=== PATIENT | male | born 1975 | race Caucasian/White ===

== ENCOUNTER 2018-07-05 09:41 | Emergency (ER) | payer OTHER ==
[2018-07-05 10:04] VITALS: BP 131/78; PULSE 80; TEMP 98.2; BMI 25.2
[2018-07-05] MEDS ORDERED: RANITIDINE HCL 150 MG TABLET (FP) PO ONE (10:32)
[2018-07-05] MEDS ORDERED: predniSONE 20 MG TABLET (UD) PO ONE (10:32)
--- NOTE | 2018-07-05 10:36 | PDOC ---
History of Present Illness - General History Source: Patient Exam Limitations: No Limitations <Ruben Morse - Last Filed: 07/05/18 10:38> - History of Present Illness Initial Comments: 07/05/18 10:41 The patient is a 43 year old male with no significant past medical history and known allergy to hair dye who presents to the ED s/p allergic reaction after dying his hair 2 days ago. He states he tried using a different hair dye this time with a different ingredient, however he developed a rash throughout his scalp, hairline, and bernardo during his use that has persisted for the past few days. He reports some relief with benadryl and denies any associated tongue/ throat swelling or difficulty breathing. He denies any fevers, chills, or cough. <Amber Dumont - Last Filed: 07/05/18 10:44> - General Chief Complaint: Allergic Reaction Stated Complaint: ALLERGIC REACTION Time Seen by Provider: 07/05/18 10:24 Past History - Past Medical History CVA: No COPD: No Disorders: No Kidney Stones: No - Immunization History Immunization Up to Date: No - Suicide/Smoking/Psychosocial Hx Smoking Status: No Smoking History: Current some day smoker Have you smoked in the past 12 months: No Number of Cigarettes Smoked Daily: 0 Information on smoking cessation initiated: No Hx Alcohol Use: No Drug/Substance Use Hx: No Substance Use Type: Marijuana <Ruben Morse - Last Filed: 07/05/18 10:38> <Amber Dumont - Last Filed: 07/05/18 10:44> - Past Medical History Allergies/Adverse Reactions: Allergies Allergy/AdvReac Type Severity Reaction Status Date / Time pineapple [Pineapple] Allergy Itching Verified 11/03/15 08:54 HAIR DYE Allergy Intermediate Uncoded 07/05/18 10:04 APPLES Allergy Itching Uncoded 11/03/15 08:54 ORANGES Allergy Itching Uncoded 11/03/15 08:54 Home Medications: Ambulatory Orders Cephalexin [Keflex] 500 mg PO BID #14 capsule 11/03/15 predniSONE [Deltasone -] 40 mg PO DAILY #8 tablet 11/03/15 Diphenhydramine HCl [Benadryl -] 25 mg PO Q6H PRN #28 capsule 07/05/18 Prednisone [Deltasone] 60 mg PO DAILY #12 tablet 07/05/18 Ranitidine HCl [Zantac] 150 mg PO BID PRN #14 tablet 07/05/18 Review of Systems - Review of Systems Able to Perform ROS?: Yes Comments:: 07/05/18 10:41 GENERAL/CONSTITUTIONAL: No fever or chills. No weakness. HEAD, EYES, EARS, NOSE AND THROAT: No change in vision. No ear pain or discharge. No sore throat. CARDIOVASCULAR: No chest pain or shortness of breath. RESPIRATORY: No cough, wheezing, or hemoptysis. GASTROINTESTINAL: No nausea, vomiting, diarrhea or constipation. GENITOURINARY: No dysuria, frequency, or change in urination. MUSCULOSKELETAL: No joint or muscle swelling or pain. No neck or back pain. SKIN: (+) Hives/rash along scalp and hair line. NEUROLOGIC: No headache, vertigo, loss of consciousness, or change in strength/ sensation. ENDOCRINE: No increased thirst. No abnormal weight change. HEMATOLOGIC/LYMPHATIC: No anemia, easy bleeding, or history of blood clots. ALLERGIC/IMMUNOLOGIC: No hives or skin allergy. All Other Systems: Reviewed and Negative <Amber Dumont - Last Filed: 07/05/18 10:44> *Physical Exam - Vital Signs Last Vital Signs Temp Pulse Resp BP Pulse Ox 98.2 F 80 18 131/78 100 07/05/18 10:02 07/05/18 10:02 07/05/18 10:02 07/05/18 10:02 07/05/18 10:02 <Ruben Morse - Last Filed: 07/05/18 10:38> - Vital Signs Last Vital Signs Temp Pulse Resp BP Pulse Ox 98.2 F 80 18 131/78 100 07/05/18 10:02 07/05/18 10:02 07/05/18 10:02 07/05/18 10:02 07/05/18 10:02 - Physical Exam Comments: 07/05/18 10:42 GENERAL: Awake, alert, and fully oriented, in no acute distress HEAD: No signs of trauma ENT: Auricles normal inspection, hearing grossly normal, nares patent, oropharynx clear, no redness or swelling. NECK: Normal ROM, supple, no lymphadenopathy, JVD, or masses LUNGS: Breath sounds equal, clear to auscultation bilaterally. No wheezes, and no crackles HEART: Regular rate and rhythm EXTREMITIES: Normal range of motion, no edema. No clubbing or cyanosis. No cords, erythema, or tenderness NEUROLOGICAL: Cranial nerves II through XII grossly intact. Normal speech, normal gait SKIN: Warm, Dry, urticaria along the scalp and bernardo. <Amber Dumont - Last Filed: 07/05/18 10:44> Moderate Sedation - Procedure Monitoring Vital Signs: Procedure Monitoring Vital Signs Temperature 98.2 F 07/05/18 10:02 Pulse Rate 80 07/05/18 10:02 Respiratory Rate 18 07/05/18 10:02 Blood Pressure 131/78 07/05/18 10:02 O2 Sat by Pulse Oximetry (%) 100 07/05/18 10:02 <Ruben Morse - Last Filed: 07/05/18 10:38> - Procedure Monitoring Vital Signs: Procedure Monitoring Vital Signs Temperature 98.2 F 07/05/18 10:02 Pulse Rate 80 07/05/18 10:02 Respiratory Rate 18 07/05/18 10:02 Blood Pressure 131/78 07/05/18 10:02 O2 Sat by Pulse Oximetry (%) 100 07/05/18 10:02 <NidiadeenaAmber - Last Filed: 07/05/18 10:44> Medical Decision Making - Medical Decision Making 07/05/18 10:38 A portion of this note was documented by scribe services under my direction. I have reviewed the details of the note, within reason, and agree with the documentation with the following case summary and management plan written by me. Patient treated in the ED. Nursing notes are reviewed and incorporated into the medical decision-making. Vital signs reviewed. Peripheral IV access obtained by the nurse, laboratory studies are drawn and sent, reviewed and interpreted by myself. Vital Signs Temp Pulse Resp BP Pulse Ox 98.2 F 80 18 131/78 100 07/05/18 10:02 07/05/18 10:02 07/05/18 10:02 07/05/18 10:02 07/05/18 10:02 43-year-old male with no past medical history presents with ALLERGIC reaction to hair dye. Yesterday, the patient was using hair dye was oozing around scalp and beer and noticed that there was a rash. He had attempted take Benadryl but did not improve. Stated the symptoms persist dental today. However, has no difficulty breathing, sore throat, chest pain, shortness of breath, palpitations , nausea, vomiting, diarrhea. Patient's is a nurse suggested the patient is a prescription for prednisone and came to the ER. The patient has no signs of anaphylaxis at this time. Does however have urticaria along the sites where he applied to hair dye. I advised patient to stay away from the hair dye. Patient already has a prescription of epinephrine at home. We'll prescribe Benadryl, Zantac and prednisone and have patient follow -up with an glazier stained glass. I discussed the physical exam findings, ancillary test results and final diagnoses with the patient. I answered all of the patient's questions. The patient was satisfied with the care received and felt comfortable with the discharge plan and treatment plan. The patient will call their primary care physician within 24 hours to arrange follow-up and will return to the Emergency Department with any new, persistant or worsening symptoms. <Ruben Morse - Last Filed: 07/05/18 10:38> *DC/Admit/Observation/Transfer - Discharge Dispostion Decision to Admit order: No <Ruben Morse - Last Filed: 07/05/18 10:38> - Attestations Scribe Attestion: 07/05/18 10:43 Documentation prepared by Amber Dumont, acting as medical office professional instructor for Ruben Morse MD. <Amber Dumont - Last Filed: 07/05/18 10:44> Diagnosis at time of Disposition: Allergic reaction Qualifiers: Encounter type: initial encounter Qualified Code(s): T78.40XA - Allergy, unspecified, initial encounter - Discharge Dispostion Disposition: HOME Condition at time of disposition: Stable - Prescriptions Prescriptions: Diphenhydramine HCl [Benadryl -] 25 mg PO Q6H PRN #28 capsule PRN Reason: Itching Prednisone [Deltasone] 60 mg PO DAILY #12 tablet Ranitidine HCl [Zantac] 150 mg PO BID PRN #14 tablet PRN Reason: Gastritis - Referrals Referrals: Rohan Neely MD [Staff Physician] - - Patient Instructions Printed Discharge Instructions: DI for Adverse Drug Reaction -- Allergic Additional Instructions: Please take prednisone daily for the next 4 days. Start tomorrow as you took for your first dose today. Take 25 benadryl every 6 hours as needed for itching. Take 150 mg zantac every 12 hours as needed for gastritis (from the prednisone). If you start to notice any difficulty breathing, please return to the ER.
[2018-07-05] MEDS ORDERED: predniSONE 20 MG TABLET (UD) ONE (10:37)
[2018-07-05] MEDS ORDERED: RANITIDINE HCL 150 MG TABLET (FP) ONE (10:37)
== END 2018-07-05 11:00 | disposition home or self-care (01) ==
LOC: JER 09:41
DX: T78.40XA Allergy, unspecified, initial encounter (principal)
CPT/HCPCS: 99282-25

== ENCOUNTER 2019-09-11 13:45 | Emergency (ER) | payer OTHER ==
[2019-09-11 14:10] VITALS: BP 100/65; PULSE 78; TEMP 97.7; BMI 23.1
[2019-09-11] MEDS ORDERED: DIPHTH,PERTUSS(ACELL),TET 0.5 ML DISP.SYRIN IM ONE ×2 (14:42→14:43)
--- NOTE | 2019-09-11 14:48 | PDOC ---
History of Present Illness - General Chief Complaint: Injury Stated Complaint: RT HAND INJURY Time Seen by Provider: 09/11/19 14:33 History Source: Patient Exam Limitations: No Limitations - History of Present Illness Initial Comments: 09/11/19 14:44 HISTORY OF PRESENT ILLNESS: 44-year-old male denies medical history presents to the emergency department for evaluation of right hand pain for 4 days status post crush injury. Patient reports he was using pliers while fixing his vehicle when his hand slipped causing him to clamp the pliers down onto the right thenar space. Patient is right-hand dominant. Unsure of last tetanus. No recent travel or sick contacts. PAST MEDICAL HISTORY: Denies past medical history SURGICAL HISTORY: Denies ALLERGIES: No known drug allergies REVIEW OF SYSTEMS General/Constitutional: Denies fever or chills. Denies weakness, weight change. HEENT: Denies change in vision. Denies ear pain or discharge. Denies sore throat. Cardiovascular: Denies chest pain or shortness of breath. Respiratory: Denies cough, wheezing, or hemoptysis. Gastrointestinal: Denies nausea, vomiting, diarrhea or constipation. Denies rectal bleeding. Genitourinary: Denies dysuria, frequency, or change in urination. Musculoskeletal: See HPI Skin and breasts: Denies rash or easy bruising. Neurologic: Denies headache, vertigo, loss of consciousness, or loss of sensation. Psychiatric: Denies depression or anxiety. Endocrine: Denies increased thirst. Denies abnormal weight change. Hematologic/Lymphatic: Denies anemia, easy bleeding, or history of blood clots. Allergic/Immunologic: Denies hives or skin allergy. Denies latex allergy. PHYSICAL EXAM General Appearance: Well-appearing, appropriately dressed. No apparent distress , no intoxication. Musculoskeletal/Extremities: FROM of all extremities. Pelvis Stable. No CVA tenderness. No tenderness to extremities, pedal edema, erythema or deformity. Swelling present to the right thenar space. Mild discoloration with the appearance of a resolving ecchymosis. Minor abrasions and skin breaks presents without evidence of infection. Neurovascularly intact. Integumentary: Appropriate color, dry, warm. No cyanosis, erythema, jaundice or rash 09/11/19 14:46 Past History - Past Medical History Allergies/Adverse Reactions: Allergies Allergy/AdvReac Type Severity Reaction Status Date / Time pineapple [Pineapple] Allergy Itching Verified 09/11/19 14:10 HAIR DYE Allergy Intermediate Uncoded 09/11/19 14:10 APPLES Allergy Itching Uncoded 09/11/19 14:10 ORANGES Allergy Itching Uncoded 09/11/19 14:10 Home Medications: Ambulatory Orders Cephalexin [Keflex] 500 mg PO BID #14 capsule 11/03/15 predniSONE [Deltasone -] 40 mg PO DAILY #8 tablet 11/03/15 Diphenhydramine HCl [Benadryl -] 25 mg PO Q6H PRN #28 capsule 07/05/18 Diphenhydramine HCl [Benadryl -] 25 mg PO Q6H PRN #28 capsule 07/05/18 Ranitidine HCl [Zantac] 150 mg PO BID PRN #14 tablet 07/05/18 Ranitidine HCl [Zantac] 150 mg PO BID PRN #14 tablet 07/05/18 predniSONE [Deltasone] 60 mg PO DAILY #12 tablet 07/05/18 predniSONE [Deltasone] 60 mg PO DAILY 4 Days #12 tablet 07/05/18 CVA: No COPD: No Disorders: No Kidney Stones: No - Immunization History Immunization Up to Date: No - Psycho Social/Smoking Cessation Hx Smoking Status: No Smoking History: Never smoked Have you smoked in the past 12 months: No Number of Cigarettes Smoked Daily: 0 Hx Alcohol Use: No Drug/Substance Use Hx: Yes (occasional marajuana) Substance Use Type: Marijuana *Physical Exam - Vital Signs Last Vital Signs Temp Pulse Resp BP Pulse Ox 97.7 F 78 18 100/65 98 09/11/19 14:07 09/11/19 14:07 09/11/19 14:07 09/11/19 14:07 09/11/19 14:07 ED Treatment Course - RADIOLOGY Radiology Studies Ordered: Category Date Time Status HAND- RIGHT [RAD] Stat Radiology 09/11/19 14:42 Ordered Medical Decision Making - Medical Decision Making 09/11/19 14:47 A/P: 44-year-old male for evaluation of pain to the right hand after accidentally pinching his thenar space with pliers Swelling present in the right thenar space with mild discoloration with resembling resolving ecchymosis. Slight skin breaks presents from the teeth of the pliers. No discharge or drainage, erythema or lymphangitis present. Patient is refusing pain medication at this time. X-ray of the right hand [facility] Reassess 09/11/19 15:06 X-rays as read by me: No acute fractures or dislocations are present. Soft tissue swelling present in the thenar space. No foreign bodies noted. Increased lucency present to shaft of proximal phalanx of index finger. Discharge home to follow-up with orthopedics as needed. 09/11/19 15:10 Discharge - Discharge Information Problems reviewed: Yes Clinical Impression/Diagnosis: Contusion of hand, not fingers Condition: Stable Disposition: HOME - Admission No - Follow up/Referral Referrals: Chaitanya Meza MD [Staff Physician] - - Patient Discharge Instructions Additional Instructions: Your tetanus has been updated today. Your x-ray showed no fractures or injuries to the bone. Warm moist heat applied to your hands may help this improve faster. Take Tylenol for pain as needed. Follow service delivery management consultant's instructions for appropriate dosage. A prescription is not needed for this pain medicine. You have been given a referral for a hand specialist. If symptoms do not improve in 1 week call to schedule an appointment. Thank you very much for choosing us to provide your emergent healthcare needs. - Post Discharge Activity
== END 2019-09-11 15:13 | disposition home or self-care (01) ==
LOC: JERFT 13:45
PROC: 3E0234Z Introduction of Serum, Toxoid and Vaccine into Muscle, Percutaneous Approach (ICD-10-PCS; principal; 2019-09-11)
DX: S60.221A Contusion of right hand, initial encounter (principal); W27.8XXA Contact with other nonpowered hand tool, initial encounter; Y93.89 Activity, other specified; Y92.89 Other specified places as the place of occurrence of the external cause; Y99.8 Other external cause status; Z91.018 Allergy to other foods; Z91.048 Other nonmedicinal substance allergy status
CPT/HCPCS: 73130-TC-RT-FY; 90471; 90715; 99283-25